=== PATIENT | male | born 1965 | race Caucasian/White ===

== ENCOUNTER 2022-12-07 17:26 | Emergency (ER) | payer OTHER ==
[2022-12-07] MEDS ORDERED: Diphtheria,Pertussis(Acell),Tetanus Vaccine 0.5 ML Syringe IM ONE (17:41)
== END 2022-12-07 19:36 | disposition home or self-care (01) ==
LOC: MW.ED 17:26
DX: S20.211A Contusion of right front wall of thorax, initial encounter (principal); S50.311A Abrasion of right elbow, initial encounter; Z23 Encounter for immunization; W00.0XXA Fall on same level due to ice and snow, initial encounter
CPT/HCPCS: 71101-26-RT; 71101-RT; 73090-26-RT; 73090-RT; 73502-26-RT; 73502-RT; 73552-26-LT; 73552-RT; 90471; 90715; 99283; 99283-25

== ENCOUNTER 2022-12-14 19:01 | Emergency (ER) | payer OTHER ==
[2022-12-14] MEDS ORDERED: Sodium Chloride 0.9% 1,000 ML IV ONE (19:05)
[2022-12-14] MEDS ORDERED: Diltiazem 25 MG/5 ML SDV IVPUSH ONE (19:25)
[2022-12-14] MEDS ORDERED: Diltiazem IR 60 MG Tab PO ONE (19:25)
[2022-12-14 19:54] LABS: HEMOGLOBIN A1C 9.5 %
[2022-12-14 20:12] LABS: CARBON DIOXIDE,CO2 28.4 mmol/L (21.0-32.0)
== END 2022-12-14 21:08 | disposition home or self-care (01) ==
LOC: MW.ED 19:01
DX: I48.91 Unspecified atrial fibrillation (principal); I10 Essential (primary) hypertension
CPT/HCPCS: 36415; 71045; 80053; 81003; 83036; 83735; 83880; 84443; 84484; 85025; 85379; 85610; 85730; 93005; 96361; 96374; 99284; A9270; J3490; J7030

== ENCOUNTER 2022-12-27 12:27 | Emergency (ER) | payer OTHER ==
[2022-12-27 13:46] LABS: BLOOD UREA NITROGEN,BUN 15 mg/dL (7.0-18.0); CARBON DIOXIDE,CO2 25.8 mmol/L (21.0-32.0); CHLORIDE,CL 104 mmol/L (98-107); GLUCOSE RANDOM 155 mg/dL (74-106); LIPASE 293 U/L (73-393); POTASSIUM,K 3.8 mmol/L (3.5-5.1); SODIUM,NA 141 mmol/L (136-148)
[2022-12-27 13:49] LABS: ESTIMATED GFR 87 mL/min (>60)
[2022-12-27] MEDS ORDERED: diphenhydrAMINE 50 MG/ML SDV IVPUSH ONE (13:51)
[2022-12-27] MEDS ORDERED: Cetirizine 10 MG Tab PO ONE (13:51)
[2022-12-27] MEDS ORDERED: methylPREDNISolone Sodium Succinate 40 MG/1 ML SDV IVPUSH ONE (13:52)
[2022-12-27] MEDS ORDERED: Iopamidol 755 MG/ML 500 ML Multipack Bottle IVPUSH ONE (14:32)
== END 2022-12-27 16:24 | disposition home or self-care (01) ==
LOC: MW.ED 12:27
DX: L50.9 Urticaria, unspecified (principal); E11.9 Type 2 diabetes mellitus without complications; Z79.84 Long term (current) use of oral hypoglycemic drugs
CPT/HCPCS: 36415; 71275; 74177; 80053; 83690; 83880; 84484; 85025; 85610; 93005; 96374; 96375; 99285; A9270; J1200; J2920; Q9967

== ENCOUNTER 2023-01-05 09:50 | Inpatient (IN) | payer OTHER ==
[2023-01-05] MEDS ORDERED: Sodium Chloride 0.9% 2.5 ML Syringe FLUSH PRN (10:03)
[2023-01-05] MEDS ORDERED: Sodium Chloride 0.9% 1,000 ML IV ONE (10:03)
[2023-01-05] MEDS ORDERED: Sodium Chloride 0.9% 10 ML Syringe FLUSH PRN (10:03)
[2023-01-05] MEDS ORDERED: Diltiazem 25 MG/5 ML SDV IVPUSH ONE (10:10)
[2023-01-05] MEDS: Diltiazem 100 MG in Sodium Chloride 0.9% 100 ML IV SCH ×2 (10:36→19:59)
[2023-01-05 11:00] LABS: BLOOD UREA NITROGEN,BUN 14 mg/dL (7.0-18.0); CARBON DIOXIDE,CO2 24.7 mmol/L (21.0-32.0); CHLORIDE,CL 102 mmol/L (98-107); GLUCOSE RANDOM 234 mg/dL (74-106); POTASSIUM,K 4.3 mmol/L (3.5-5.1); SODIUM,NA 136 mmol/L (136-148)
[2023-01-05 11:01] LABS: ESTIMATED GFR 87 mL/min (>60)
[2023-01-05] MEDS ORDERED: 50% Dextrose in Water 50 ML Syringe IVPUSH PRN (13:56)
[2023-01-05] MEDS ORDERED: Glucagon,Human Recombinant 1 MG Vial IM PRN (13:56)
[2023-01-05] MEDS: Enoxaparin 100 MG/1 ML Syringe SUBCUT SCH (15:16)
[2023-01-05] MEDS: Diltiazem IR 30 MG Tab PO SCH ×2 (15:16→19:41)
[2023-01-05] MEDS: Insulin Aspart 100 Units/ML 3 ML Pen SUBCUT SCH (16:46)
[2023-01-05] MEDS ORDERED: Magnesium Oxide 400 MG Tab PO ONE (20:38)
[2023-01-06] MEDS: Diltiazem IR 60 MG Tab PO SCH ×2 (00:41→05:22)
[2023-01-06] MEDS: Enoxaparin 100 MG/1 ML Syringe SUBCUT SCH (01:00)
[2023-01-06 06:09] LABS: CARBON DIOXIDE,CO2 23.3 mmol/L (21.0-32.0); POTASSIUM,K 4.2 mmol/L (3.5-5.1)
[2023-01-06] MEDS ORDERED: Aspirin 81 MG Tab.EC PO SCH (09:00)
[2023-01-06] MEDS: Insulin Aspart 100 Units/ML 3 ML Pen SUBCUT SCH ×3 (09:05→16:53)
[2023-01-06] MEDS ORDERED: Magnesium Sulfate/Water 2 GM in Premix Bag 1 BAG IV ONE (10:52)
[2023-01-06] MEDS ORDERED: Diltiazem 100 MG in Sodium Chloride 0.9% 100 ML IV SCH (11:15)
[2023-01-06] MEDS ORDERED: Diltiazem IR 30 MG Tab PO SCH ×3 (12:00→18:00)
[2023-01-06] MEDS ORDERED: Apixaban 5 MG Tab PO SCH (18:00)
[2023-01-06] MEDS ORDERED: atorvaSTATin 40 MG Tab PO SCH (21:00)
== END 2023-01-06 18:15 | DRG 310 ==
LOC: MW.ED 09:50 → MW.ICU 12:46
PROVIDERS: ADMIT Internal Medicine; ATTEND Internal Medicine
DX: I48.91 Unspecified atrial fibrillation (principal); I48.92 Unspecified atrial flutter; E11.9 Type 2 diabetes mellitus without complications; I47.1 Supraventricular tachycardia; D72.829 Elevated white blood cell count, unspecified; Z20.822 Contact with and (suspected) exposure to COVID-19; Z79.84 Long term (current) use of oral hypoglycemic drugs; Z79.82 Long term (current) use of aspirin; Z79.899 Other long term (current) drug therapy
CPT/HCPCS: 36415; 71045; 71045-26; 80053; 80305-QW; 80307; 81003; 82947; 83735; 84100; 84443; 84484; 85025; 85610; 85730; 93005; 93010; 93306; 96365; 96366; 96376; 99285-25; 99291; A9270-GY; J1650; J1815-GY; J3475; J3490; J7030; U0002